=== PATIENT | male | born 1970 | race African-American/Black ===

== ENCOUNTER 2016-12-19 14:35 | Inpatient (IN) | payer OTHER ==
[2016-12-19 17:36] VITALS: BMI 22.8
--- NOTE | 2016-12-19 18:26 | HP ---
CIWA Score - CIWA Score Nausea/Vomitin-Mild Nausea/No Vomiting Muscle Tremors: 5 Anxiety: 4-Mod. Anxious/Guarded Agitation: 4-Moderately Restless Paroxysmal Sweats: 1-Minimal Palms Moist Orientation: 1-Uncertain about Date Tacttile Disturbances: 0-None Auditory Disturbances: 0-None Visual Disturbances: 0-None Headache: 1-Very Mild CIWA-Ar Total Score: 17 Admission ROS BHS - HPI Chief Complaint: WITHDRAWAL SX Allergies/Adverse Reactions: Allergies Allergy/AdvReac Type Severity Reaction Status Date / Time No Known Allergies Allergy Verified 12/19/16 17:44 History of Present Illness: 46 YEARS OLD MALE WITH LONG HISTORY OF ALCOHOL NICOTINE DEPENDENCE, HAS HYPOTHYROID, POSITIVE PPD OSTEOPOROSIS AND DEPRESSION AND NEUROPATHY OF THE ARMS AND LEGS IS ADMITTED TO DETOX Exam Limitations: No Limitations - Ebola screening Have you traveled outside of the country in the last 21 days: No Have you had contact with anyone from an Ebola affected area: No Have you been sick,other than usual withdrawal symptoms: No Do you have a fever: No - Review of Systems Constitutional: Chills, Loss of Appetite, Changes in sleep, Unintentional Wgt. Loss, Unexplained wgt Loss EENT: reports: No Symptoms Reported Respiratory: reports: No Symptoms reported Cardiac: reports: No Symptoms Reported GI: reports: Diarrhea, Nausea, Poor Appetite, Poor Fluid Intake, Abdominal cramping : reports: No Symptoms Reported Musculoskeletal: reports: Back Pain, Muscle Pain (HIPS), Neck Pain Integumentary: reports: No Symptoms Reported Neuro: reports: Tremors Endocrine: reports: Unexplained Weight Gain Hematology: reports: No Symptoms Reported Psychiatric: reports: Judgement Intact, Anxious Other Systems: Reviewed and Negative Patient History - Patient Medical History Hx Anemia: No Hx Asthma: No Hx Chronic Obstructive Pulmonary Disease (COPD): No Hx Cancer: No Hx Cardiac Disorders: No Hx Congestive Heart Failure: No Hx Hypertension: No Hx Hypercholesterolemia: No Hx Pacemaker: No HX Cerebrovascular Accident: No Hx Seizures: No Hx Dementia: No Hx Diabetes: No Hx Gastrointestinal Disorders: No Hx Liver Disease: No Hx Genitourinary Disorders: No Hx Sexually Transmitted Disorders: No Hx Renal Disease (ESRD): No Hx Thyroid Disease: Yes (HYPO 2014) Hx Human Immunodeficiency Virus (HIV): No Hx Hepatitis C: No Hx Depression: Yes Hx Suicide Attempt: No Hx Bipolar Disorder: No Hx Schizophrenia: No - Patient Surgical History Past Surgical History: Yes Hx Neurologic Surgery: Yes (2012) Hx Cataract Extraction: No Hx Cardiac Surgery: No Hx Lung Surgery: No Hx Breast Surgery: No Hx Breast Biopsy: No Hx Abdominal Surgery: No Hx Appendectomy: No Hx Cholecystectomy: No Hx Genitourinary Surgery: No Hx Orthopedic Surgery: No Anesthesia Reaction: No - PPD History Previous Implant?: Yes Documented Results: Positive w/o proof Implanted On Prior R Admission?: No PPD to be Administered?: No - Smoking Cessation Smoking history: Current every day smoker Have you smoked in the past 12 months: Yes Aproximately how many cigarettes per day: 20 Cigars Per Day: 0 Hx Chewing Tobacco Use: No Initiated information on smoking cessation: Yes 'Breaking Loose' booklet given: 12/19/16 - Substance & Tx. History Hx Alcohol Use: Yes Hx Substance Use: No Substance Use Type: Alcohol Hx Substance Use Treatment: Yes - Substances Abused Alcohol Route: Oral Frequency: Daily Amount used: LIQUOR- 1 PINT, BEER- 2 SIX PACK Age of first use: 15 Date of Last Use: 12/18/16 Family Disease History - Family Disease History Family Disease History: Diabetes: Father, Heart Disease: Father, Brother Admission Physical Exam BHS - Vital Signs Vital Signs: Vital Signs - 24 hr 12/19/16 17:34 Temperature 98.1 F Pulse Rate 80 Respiratory 20 Rate Blood Pressure 139/89 - Physical General Appearance: Yes: Appropriately Dressed, Moderate Distress, Thin, Tremorous, Irritable, Sweating, Anxious HEENTM: Yes: Hearing grossly Normal, Normal ENT Inspection, Normocephalic, Normal Voice Respiratory: Yes: Chest Non-Tender, Lungs Clear, Normal Breath Sounds, No Respiratory Distress, No Accessory Muscle Use Neck: Yes: Supple, Trachea in good position Breast: Yes: Breasts Symetrical Cardiology: Yes: Regular Rhythm, S1, S2, Tachycardia Abdominal: Yes: Non Tender, Soft Genitourinary: Yes: Within Normal Limits Back: Yes: Normal Inspection Musculoskeletal: Yes: full range of Motion, Gait Steady, Back pain, Muscle Pain Extremities: Yes: Normal Range of Motion, Non-Tender, Tremors Neurological: Yes: Alert, Motor Strength 5/5, Normal Response Integumentary: Yes: Warm Lymphatic: Yes: Within Normal Limits - Diagnostic (1) Alcohol dependence with uncomplicated withdrawal Current Visit: Yes Status: Acute (2) Positive PPD Current Visit: Yes Status: Resolved Comment: CHEST X RAY PENDING (3) Hypothyroidism Current Visit: Yes Status: Acute Qualifiers: 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 Comment: SYNTHROID (4) Weight loss Current Visit: Yes Status: Acute Comment: ENSURE (5) S/P neurological surgery Current Visit: Yes Status: Resolved Comment: NECK CERVICAL SPINE (6) Muscle spasm of back Current Visit: Yes Status: Acute Comment: FLEXERIL (7) Depression (emotion) Current Visit: Yes Status: Suspected Qualifiers: Depression Type: dysthymia Qualified Code(s): F34.1 - Dysthymic disorder Comment: KAREEMN Cleared for Admission S - Detox or Rehab [facility] Level of Care: Medically Managed Detox Regimen/Protocol: Librium [facility] Breath Alcohol Content Breath Alcohol Content: 0 Urine Drug Screen - Results Drug Screen Negative: Yes
[2016-12-19] MEDS ORDERED: LOPERAMIDE HCL 2 MG CAPSULE PO PRN (18:34)
[2016-12-19] MEDS ORDERED: ACETAMINOPHEN 325 MG TABLET (FP) PO PRN (18:34)
[2016-12-19] MEDS ORDERED: chlordiazePOXIDE HCL 25 MG CAPSULE PO PRN (18:34)
[2016-12-19] MEDS ORDERED: P-EPHED 60MG/TRIPROLIDI 2.5MG TABLET PO PRN (18:34)
[2016-12-19] MEDS ORDERED: MAG HYDROX/AL HYDROX/SIMETH 30 ML UNIT-DOSE CUP PO PRN (18:34)
[2016-12-19] MEDS ORDERED: NICOTINE POLACRILEX 4 MG GUM BC PRN (18:34)
[2016-12-19] MEDS ORDERED: MENTHOL/PHENOL 1 EACH UD MM PRN (18:34)
[2016-12-19] MEDS ORDERED: MAGNESIUM HYDROX 2400MG/30ML ORAL SUSPENSION 30 ML CUP PO PRN (18:34)
[2016-12-19] MEDS ORDERED: IBUPROFEN 400 MG TABLET (FP) PO PRN (18:34)
[2016-12-19] MEDS ORDERED: guaiFENesin/D-METHORPHAN HB 10 ML UNIT-DOSE CUPS PO PRN (18:34)
[2016-12-19] MEDS ORDERED: MAGNESIUM CITRATE 300 ML BOTTLE PO PRN (18:34)
[2016-12-19] MEDS ORDERED: CYCLOBENZAPRINE HCL 10 MG TABLET (FP) PO PRN (18:38)
[2016-12-19] MEDS ORDERED: chlordiazePOXIDE HCL 25 MG CAPSULE PO ONE (19:00)
[2016-12-19] MEDS: THIAMINE HCL 100 MG TABLET (FP) PO SCH (22:24)
[2016-12-19] MEDS: chlordiazePOXIDE HCL 25 MG CAPSULE PO SCH (22:24)
[2016-12-19] MEDS: diphenhydrAMINE HCL 50 MG CAPSULE PO PRN (22:25)
[2016-12-19] MEDS: GABAPENTIN 300 MG CAPSULE (FP) PO SCH (22:25)
[2016-12-19 23:20] LABS: URINE APPEARANCE CLEAR; URINE BILIRUBIN NEGATIVE (NEGATIVE); URINE BLOOD NEGATIVE (NEGATIVE); URINE COLOR YELLOW; URINE GLUCOSE (UA) NEGATIVE (NEGATIVE); URINE KETONE NEGATIVE (NEGATIVE); URINE LEUK ESTERASE NEGATIVE (NEGATIVE); URINE NITRITE NEGATIVE (NEGATIVE); URINE PROTEIN 1+ (NEGATIVE); URINE UROBILINOGEN NEGATIVE E.U./dl (0.2-1.0)
[2016-12-19 23:23] LABS: URINE MUCUS RARE; URINE RBC <1 /hpf (0-3); URINE WBC <1 /hpf (3-5)
[2016-12-20] MEDS: diphenhydrAMINE HCL 50 MG CAPSULE PO PRN ×2 (00:49→22:25)
[2016-12-20] MEDS: chlordiazePOXIDE HCL 25 MG CAPSULE PO SCH ×4 (05:52→22:24)
[2016-12-20] MEDS: GABAPENTIN 300 MG CAPSULE (FP) PO SCH ×3 (05:53→22:24)
[2016-12-20] MEDS: LEVOTHYROXINE NA 88 MCG TABLET (FP) PO SCH (06:08)
[2016-12-20 10:09] LABS: MCH 31.9 pg (25.7-33.7); MCHC 33.1 g/dl (32.0-35.9); MEAN CELL VOLUME 96.2 fl (80-96); MEAN PLT VOLUME 8.6 fl (7.5-11.1); PLATELET COUNT 179 K/MM3 (134-434); RDW 16.5 % (11.9-15.9); WHITE BLOOD COUNT 6.4 K/mm3 (4.0-10.0)
[2016-12-20] MEDS: NICOTINE 21 MG/24 HOURS TOPICAL PATCH TD SCH (10:26)
[2016-12-20] MEDS: PRENATAL VITAMINS W/ FOLIC ACID TABLET (FP) PO SCH (10:27)
[2016-12-20] MEDS: CALCIUM 250MG/VIT-D 125 UNITS 1 COMBO TABLET PO SCH (10:27)
[2016-12-20 10:57] LABS: ALBUMIN 3.5 g/dl (3.4-5.0); ALK PHOS 75 U/L (45-117); ANION GAP 10 (8-16); BILIRUBIN,TOTAL 0.6 mg/dL (0.2-1.0); CALCIUM 8.9 mg/dL (8.5-10.1); CO2 25 mmol/L (21-32); CREATININE 0.9 mg/dL (0.7-1.3); GLUCOSE,RANDOM 89 mg/dL (74-106); SGOT/AST 26 U/L (15-37); SGPT/ALT 21 U/L (12-78); THYROID STIMULATING HORMONE 2.92 uIU/ml (0.358-3.74); TOT PROT 6.3 g/dl (6.4-8.2)
--- NOTE | 2016-12-20 10:58 | PN ---
S CIWA - CIWA Score Nausea/Vomitin-Mild Nausea/No Vomiting Muscle Tremors: 4-Moderate,w/Arms Extend Anxiety: 3 Agitation: 4-Moderately Restless Paroxysmal Sweats: 3 Orientation: 0-Oriented Tacttile Disturbances: 0-None Auditory Disturbances: 0-None Visual Disturbances: 0-None Headache: 0-None Present CIWA-Ar Total Score: 15 BHS Progress Note (SOAP) Subjective: Sweating,interrupted sleep,anxiety,tremors,restless Objective: 12/20/16 10:57 Vital Signs - 8 hr 12/20/16 12/20/16 06:20 10:45 Temperature 97 F L 97.2 F L Pulse Rate 80 92 H Respiratory 18 20 Rate Blood Pressure 117/81 122/87 Laboratory Last Values WBC 6.4 K/mm3 (4.0-10.0) 12/20/16 07:10 RBC 4.44 M/mm3 (4.00-5.60) 12/20/16 07:10 Hgb 14.1 GM/dL (11.7-16.9) 12/20/16 07:10 Hct 42.7 % (35.4-49) 12/20/16 07:10 MCV 96.2 fl (80-96) H 12/20/16 07:10 MCHC 33.1 g/dl (32.0-35.9) 12/20/16 07:10 RDW 16.5 % (11.9-15.9) H 12/20/16 07:10 Plt Count 179 K/MM3 (134-434) 12/20/16 07:10 MPV 8.6 fl (7.5-11.1) 12/20/16 07:10 Sodium 141 mmol/L (136-145) 12/20/16 07:10 Potassium 3.8 mmol/L (3.5-5.1) 12/20/16 07:10 Chloride 106 mmol/L (98-107) 12/20/16 07:10 Urine Color Yellow 12/19/16 22:00 Urine Appearance Clear 12/19/16 22:00 Urine pH 7.0 (5.0-8.0) 12/19/16 22:00 Ur Specific [place] 1.023 (1.001-1.035) 12/19/16 22:00 Urine Protein 1+ (NEGATIVE) H 12/19/16 22:00 Urine Glucose (UA) Negative (NEGATIVE) 12/19/16 22:00 Urine Ketones Negative (NEGATIVE) 12/19/16 22:00 Urine Blood Negative (NEGATIVE) 12/19/16 22:00 Urine Nitrite Negative (NEGATIVE) 12/19/16 22:00 Urine Bilirubin Negative (NEGATIVE) 12/19/16 22:00 Urine Urobilinogen Negative E.U./dl (0.2-1.0) 12/19/16 22:00 Ur Leukocyte Esterase Negative (NEGATIVE) 12/19/16 22:00 Urine RBC <1 /hpf (0-3) 12/19/16 22:00 Urine WBC <1 /hpf (3-5) 12/19/16 22:00 Ur Epithelial Cells Rare /hpf (FEW) 12/19/16 22:00 Urine Mucus Rare 12/19/16 22:00 labs noted Assessment: 12/20/16 10:57 Withdrawal sx. Plan: Continue detox
[2016-12-20] MEDS: hydrOXYzine PAMOATE 50 MG CAPSULE (FP) PO PRN (13:29)
--- NOTE | 2016-12-20 13:42 | CONSULT ---
[facility] Psychiatric Consult - Data Date of interview: 12/20/16 Admission source: [facility] Identifying data: First admission to [facility] for this 46 y/o [place]-born male seeking detox treatment for alcohol dependence.Patient is single without children,domiciled,unempoyed and supported on food stamps. Substance Abuse History: - Smoking Cessation. Smoking history: Current every day smoker. Have you smoked in the past 12 months: Yes. Aproximately how many cigarettes per day: 20. Cigars Per Day: 0. Hx Chewing Tobacco Use: No. Initiated information on smoking cessation: Yes. 'Breaking Loose' booklet given : 12/19/16. - Substance & Tx. History. Hx Alcohol Use: Yes. Hx Substance Use : No. Substance Use Type: Alcohol. Hx Substance Use Treatment: Yes. - Substances Abused. Alcohol. Route: Oral. Frequency: Daily. Amount used: LIQUOR- 1 PINT, BEER- 2 SIX PACK. Age of first use: 15. Date of Last Use: . Confirmed by the patient. Medical History: Hypothyroidism. Psychiatric History: Patient denies psychiatric hospitalizations.He sees a psychiatrist at the [facility] for medication management (remeron 15 mg/hs).Diagnosed with Anxiety Disorder and Insomnia.Mr Higgins denies history of suicide attempts. Physical/Sexual Abuse/Trauma History: Patient denies. Additional Comment: Drug Screen Negative: Yes.Noted. Mental Status Exam - Mental Status Exam Alert and Oriented to: Time, Place, Person Cognitive Function: Good Patient Appearance: Well Groomed Mood: Hopeful, Euthymic Affect: Appropriate, Normal Range Patient Behavior: Appropriate, Cooperative (friendly,well-mannered) Speech Pattern: Clear, Appropriate Voice Loudness: Normal Thought Process: Goal Oriented Thought Disorder: Not Present Hallucinations: Denies Suicidal Ideation: Denies Homicidal Ideation: Denies Insight/Judgement: Fair Sleep: Poorly, Difficulty falling asleep Appetite: Good Muscle strength/Tone: Normal Gait/Station: Normal Psychiatric Findings - Problem List ([place] 1, 2,3) (1) Alcohol dependence with uncomplicated withdrawal Current Visit: Yes Status: Acute (2) Nicotine dependence Current Visit: Yes Status: Acute (3) Hypothyroidism Current Visit: Yes Status: Acute Qualifiers: 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
--- NOTE | 2016-12-20 16:55 | EKG ---
Test Reason : Blood Pressure : / mmHG Vent. Rate : 061 BPM Atrial Rate : 061 BPM P-R Int : 124 ms QRS Dur : 088 ms QT Int : 420 ms P-R-T Axes : 055 007 007 degrees QTc Int : 422 ms NORMAL SINUS RHYTHM VOLTAGE CRITERIA FOR LEFT VENTRICULAR HYPERTROPHY ABNORMAL ECG NO PREVIOUS ECGS AVAILABLE Confirmed by ELICEO LAYTON MD ([id number]) on 12/20/2016 4:55:05 PM Referred By: Confirmed By:ELICEO LAYTON MD
[2016-12-20] MEDS: MIRTAZAPINE 15 MG TABLET (FP) PO SCH (22:24)
[2016-12-20] MEDS: THIAMINE HCL 100 MG TABLET (FP) PO SCH (22:24)
[2016-12-21] MEDS: GABAPENTIN 300 MG CAPSULE (FP) PO SCH ×3 (05:34→22:20)
[2016-12-21] MEDS: chlordiazePOXIDE HCL 25 MG CAPSULE PO SCH ×3 (05:34→17:56)
[2016-12-21] MEDS: LEVOTHYROXINE NA 88 MCG TABLET (FP) PO SCH (07:06)
--- NOTE | 2016-12-21 10:19 | PN ---
S CIWA - CIWA Score Nausea/Vomitin Muscle Tremors: 3 Anxiety: 3 Agitation: 2 Paroxysmal Sweats: 1-Minimal Palms Moist Orientation: 0-Oriented Tacttile Disturbances: 1-Very Mild Itch/Numbness Auditory Disturbances: 1-Very Mild Visual Disturbances: 1-Very Mild Sensitivity Headache: 2-Mild CIWA-Ar Total Score: 17 S Progress Note (SOAP) Subjective: ALERT,IRRITABLE,ANXIOUS,INTERRUPTED SLEEP,TREMOR Objective: 12/21/16 10:17 Vital Signs Temperature 96.4 F L 12/21/16 10:12 Pulse Rate 92 H 12/21/16 10:12 Respiratory Rate 2 L 12/21/16 10:12 Blood Pressure 116/84 12/21/16 10:12 O2 Sat by Pulse Oximetry (%) EKG NSR Laboratory Last Values WBC 6.4 K/mm3 (4.0-10.0) 12/20/16 07:10 RBC 4.44 M/mm3 (4.00-5.60) 12/20/16 07:10 Hgb 14.1 GM/dL (11.7-16.9) 12/20/16 07:10 Hct 42.7 % (35.4-49) 12/20/16 07:10 MCV 96.2 fl (80-96) H 12/20/16 07:10 MCHC 33.1 g/dl (32.0-35.9) 12/20/16 07:10 RDW 16.5 % (11.9-15.9) H 12/20/16 07:10 Plt Count 179 K/MM3 (134-434) 12/20/16 07:10 MPV 8.6 fl (7.5-11.1) 12/20/16 07:10 Sodium 141 mmol/L (136-145) 12/20/16 07:10 Potassium 3.8 mmol/L (3.5-5.1) 12/20/16 07:10 Chloride 106 mmol/L (98-107) 12/20/16 07:10 Carbon Dioxide 25 mmol/L (21-32) 12/20/16 07:10 Anion Gap 10 (8-16) 12/20/16 07:10 BUN 13 mg/dL (7-18) 12/20/16 07:10 Creatinine 0.9 mg/dL (0.7-1.3) 12/20/16 07:10 Creat Clearance w eGFR > 60 (>60) 12/20/16 07:10 Random Glucose 89 mg/dL (74-106) 12/20/16 07:10 Calcium 8.9 mg/dL (8.5-10.1) 12/20/16 07:10 Total Bilirubin 0.6 mg/dL (0.2-1.0) 12/20/16 07:10 AST 26 U/L (15-37) 12/20/16 07:10 ALT 21 U/L (12-78) 12/20/16 07:10 Alkaline Phosphatase 75 U/L (45-117) 12/20/16 07:10 Total Protein 6.3 g/dl (6.4-8.2) L 12/20/16 07:10 Albumin 3.5 g/dl (3.4-5.0) 12/20/16 07:10 TSH 2.92 uIU/ml (0.358-3.74) 12/20/16 07:10 Urine Color Yellow 12/19/16 22:00 Urine Appearance Clear 12/19/16 22:00 Urine pH 7.0 (5.0-8.0) 12/19/16 22:00 Ur Specific [place] 1.023 (1.001-1.035) 12/19/16 22:00 Urine Protein 1+ (NEGATIVE) H 12/19/16 22:00 Urine Glucose (UA) Negative (NEGATIVE) 12/19/16 22:00 Urine Ketones Negative (NEGATIVE) 12/19/16 22:00 Urine Blood Negative (NEGATIVE) 12/19/16 22:00 Urine Nitrite Negative (NEGATIVE) 12/19/16 22:00 Urine Bilirubin Negative (NEGATIVE) 12/19/16 22:00 Urine Urobilinogen Negative E.U./dl (0.2-1.0) 12/19/16 22:00 Ur Leukocyte Esterase Negative (NEGATIVE) 12/19/16 22:00 Urine RBC <1 /hpf (0-3) 12/19/16 22:00 Urine WBC <1 /hpf (3-5) 12/19/16 22:00 Ur Epithelial Cells Rare /hpf (FEW) 12/19/16 22:00 Urine Mucus Rare 03/20/17 22:00 RPR Titer Nonreactive (NONREACTIVE) 12/20/16 07:10 Assessment: 12/21/16 10:18 WITHDRAWAL SYMPTOM Plan: CONTINUE DETOX
[2016-12-21] MEDS: PRENATAL VITAMINS W/ FOLIC ACID TABLET (FP) PO SCH (10:29)
[2016-12-21] MEDS: CALCIUM 250MG/VIT-D 125 UNITS 1 COMBO TABLET PO SCH (10:31)
[2016-12-21] MEDS: NICOTINE 21 MG/24 HOURS TOPICAL PATCH TD SCH (10:32)
[2016-12-21] MEDS: hydrOXYzine PAMOATE 50 MG CAPSULE (FP) PO PRN (15:48)
[2016-12-21] MEDS: chlordiazePOXIDE 5 MG CAPSULE PO SCH (22:19)
[2016-12-21] MEDS: THIAMINE HCL 100 MG TABLET (FP) PO SCH (22:19)
[2016-12-21] MEDS: MIRTAZAPINE 15 MG TABLET (FP) PO SCH (22:20)
[2016-12-21] MEDS: diphenhydrAMINE HCL 50 MG CAPSULE PO PRN (22:20)
[2016-12-22] MEDS: chlordiazePOXIDE 5 MG CAPSULE PO SCH ×3 (05:39→17:39)
[2016-12-22] MEDS: GABAPENTIN 300 MG CAPSULE (FP) PO SCH ×3 (05:40→22:19)
[2016-12-22] MEDS: LEVOTHYROXINE NA 88 MCG TABLET (FP) PO SCH (06:26)
--- NOTE | 2016-12-22 10:05 | PN ---
BHS Progress Note (SOAP) Subjective: Sweating,interrupted sleep,restless Objective: 12/22/16 10:04 Vital Signs - 8 hr 12/22/16 12/22/16 12/22/16 03:19 06:29 09:36 Temperature 97.7 F 96.4 F L Pulse Rate 93 H 95 H Respiratory 18 16 18 Rate Blood Pressure 107/76 123/86 Laboratory Last Values WBC 6.4 K/mm3 (4.0-10.0) 12/20/16 07:10 RBC 4.44 M/mm3 (4.00-5.60) 12/20/16 07:10 Hgb 14.1 GM/dL (11.7-16.9) 12/20/16 07:10 Hct 42.7 % (35.4-49) 12/20/16 07:10 MCV 96.2 fl (80-96) H 12/20/16 07:10 MCHC 33.1 g/dl (32.0-35.9) 12/20/16 07:10 RDW 16.5 % (11.9-15.9) H 12/20/16 07:10 Plt Count 179 K/MM3 (134-434) 12/20/16 07:10 MPV 8.6 fl (7.5-11.1) 12/20/16 07:10 Sodium 141 mmol/L (136-145) 12/20/16 07:10 Potassium 3.8 mmol/L (3.5-5.1) 12/20/16 07:10 Chloride 106 mmol/L (98-107) 12/20/16 07:10 Carbon Dioxide 25 mmol/L (21-32) 12/20/16 07:10 Anion Gap 10 (8-16) 12/20/16 07:10 BUN 13 mg/dL (7-18) 12/20/16 07:10 Creatinine 0.9 mg/dL (0.7-1.3) 12/20/16 07:10 Creat Clearance w eGFR > 60 (>60) 12/20/16 07:10 Random Glucose 89 mg/dL (74-106) 12/20/16 07:10 Calcium 8.9 mg/dL (8.5-10.1) 12/20/16 07:10 Total Bilirubin 0.6 mg/dL (0.2-1.0) 12/20/16 07:10 AST 26 U/L (15-37) 12/20/16 07:10 ALT 21 U/L (12-78) 12/20/16 07:10 Alkaline Phosphatase 75 U/L (45-117) 12/20/16 07:10 Total Protein 6.3 g/dl (6.4-8.2) L 12/20/16 07:10 Albumin 3.5 g/dl (3.4-5.0) 12/20/16 07:10 TSH 2.92 uIU/ml (0.358-3.74) 12/20/16 07:10 Urine Color Yellow 12/19/16 22:00 Urine Appearance Clear 12/19/16 22:00 Urine pH 7.0 (5.0-8.0) 12/19/16 22:00 Ur Specific [place] 1.023 (1.001-1.035) 12/19/16 22:00 Urine Protein 1+ (NEGATIVE) H 12/19/16 22:00 Urine Glucose (UA) Negative (NEGATIVE) 12/19/16 22:00 Urine Ketones Negative (NEGATIVE) 12/19/16 22:00 Urine Blood Negative (NEGATIVE) 12/19/16 22:00 Urine Nitrite Negative (NEGATIVE) 12/19/16 22:00 Urine Bilirubin Negative (NEGATIVE) 12/19/16 22:00 Urine Urobilinogen Negative E.U./dl (0.2-1.0) 12/19/16 22:00 Ur Leukocyte Esterase Negative (NEGATIVE) 12/19/16 22:00 Urine RBC <1 /hpf (0-3) 12/19/16 22:00 Urine WBC <1 /hpf (3-5) 12/19/16 22:00 Ur Epithelial Cells Rare /hpf (FEW) 12/19/16 22:00 Urine Mucus Rare 12/19/16 22:00 RPR Titer Nonreactive (NONREACTIVE) 12/20/16 07:10 labs noted Assessment: 12/22/16 10:04 Withdrawal sx. Plan: Continue detox
[2016-12-22] MEDS: PRENATAL VITAMINS W/ FOLIC ACID TABLET (FP) PO SCH (10:28)
[2016-12-22] MEDS: NICOTINE 21 MG/24 HOURS TOPICAL PATCH TD SCH (10:29)
[2016-12-22] MEDS: CALCIUM 250MG/VIT-D 125 UNITS 1 COMBO TABLET PO SCH (10:29)
[2016-12-22] MEDS: chlordiazePOXIDE HCL 10 MG CAPSULE PO SCH (22:19)
[2016-12-22] MEDS: THIAMINE HCL 100 MG TABLET (FP) PO SCH (22:19)
[2016-12-22] MEDS: MIRTAZAPINE 15 MG TABLET (FP) PO SCH (22:19)
[2016-12-23] MEDS: GABAPENTIN 300 MG CAPSULE (FP) PO SCH (05:29)
[2016-12-23] MEDS: chlordiazePOXIDE HCL 10 MG CAPSULE PO SCH ×2 (05:29→05:42)
[2016-12-23] MEDS: LEVOTHYROXINE NA 88 MCG TABLET (FP) PO SCH (06:08)
[2016-12-23 06:32] VITALS: BP 120/86; PULSE 103; TEMP 96.4
--- NOTE | 2016-12-23 12:26 | DS ---
[facility] Detox Discharge Summary Admission Date: 12/19/16 Discharge Date: 12/23/16 - History Present History: Alcohol Dependence Additional Comments: ADVISED PATIENT TO FOLLOW-UP WITH [facility] / REHAB MEDICAL PROVIDER AFTER DISCHARGE FROM DETOX FOR GENERAL MEDICAL ASSESSMENT AND FOR ANY ABNORMAL ADMISSION LAB VALUES. Pertinent Past History: Hypothyroidism, Depression, Positive PPD. - Physical Exam Results Vital Signs: Vital Signs Temperature 96.4 F L 12/23/16 06:32 Pulse Rate 103 H 12/23/16 06:32 Respiratory Rate 18 12/23/16 06:32 Blood Pressure 120/86 12/23/16 06:32 O2 Sat by Pulse Oximetry (%) Pertinent Admission Physical Exam Findings: WITHDRAWAL SYMPTOMS. Laboratory Last Values WBC 6.4 K/mm3 (4.0-10.0) 12/20/16 07:10 RBC 4.44 M/mm3 (4.00-5.60) 12/20/16 07:10 Hgb 14.1 GM/dL (11.7-16.9) 12/20/16 07:10 Hct 42.7 % (35.4-49) 12/20/16 07:10 MCV 96.2 fl (80-96) H 12/20/16 07:10 MCHC 33.1 g/dl (32.0-35.9) 12/20/16 07:10 RDW 16.5 % (11.9-15.9) H 12/20/16 07:10 Plt Count 179 K/MM3 (134-434) 12/20/16 07:10 MPV 8.6 fl (7.5-11.1) 12/20/16 07:10 Sodium 141 mmol/L (136-145) 12/20/16 07:10 Potassium 3.8 mmol/L (3.5-5.1) 12/20/16 07:10 Chloride 106 mmol/L (98-107) 12/20/16 07:10 Carbon Dioxide 25 mmol/L (21-32) 12/20/16 07:10 Anion Gap 10 (8-16) 12/20/16 07:10 BUN 13 mg/dL (7-18) 12/20/16 07:10 Creatinine 0.9 mg/dL (0.7-1.3) 12/20/16 07:10 Creat Clearance w eGFR > 60 (>60) 12/20/16 07:10 Random Glucose 89 mg/dL (74-106) 12/20/16 07:10 Calcium 8.9 mg/dL (8.5-10.1) 12/20/16 07:10 Total Bilirubin 0.6 mg/dL (0.2-1.0) 12/20/16 07:10 AST 26 U/L (15-37) 12/20/16 07:10 ALT 21 U/L (12-78) 12/20/16 07:10 Alkaline Phosphatase 75 U/L (45-117) 12/20/16 07:10 Total Protein 6.3 g/dl (6.4-8.2) L 12/20/16 07:10 Albumin 3.5 g/dl (3.4-5.0) 12/20/16 07:10 TSH 2.92 uIU/ml (0.358-3.74) 12/20/16 07:10 Urine Color Yellow 12/19/16 22:00 Urine Appearance Clear 12/19/16 22:00 Urine pH 7.0 (5.0-8.0) 12/19/16 22:00 Ur Specific [place] 1.023 (1.001-1.035) 12/19/16 22:00 Urine Protein 1+ (NEGATIVE) H 12/19/16 22:00 Urine Glucose (UA) Negative (NEGATIVE) 12/19/16 22:00 Urine Ketones Negative (NEGATIVE) 12/19/16 22:00 Urine Blood Negative (NEGATIVE) 12/19/16 22:00 Urine Nitrite Negative (NEGATIVE) 12/19/16 22:00 Urine Bilirubin Negative (NEGATIVE) 12/19/16 22:00 Urine Urobilinogen Negative E.U./dl (0.2-1.0) 12/19/16 22:00 Ur Leukocyte Esterase Negative (NEGATIVE) 12/19/16 22:00 Urine RBC <1 /hpf (0-3) 12/19/16 22:00 Urine WBC <1 /hpf (3-5) 12/19/16 22:00 Ur Epithelial Cells Rare /hpf (FEW) 12/19/16 22:00 Urine Mucus Rare 12/19/16 22:00 RPR Titer Nonreactive (NONREACTIVE) 12/20/16 07:10 LABS NOTED. - Treatment Hospital Course: Detox Protocol Followed, Detoxed Safely, Responded well, Discharged Condition Good Patient has Accepted a Rehab Referral to: NO - PATIENT TO GO TO [facility]. 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
== END 2016-12-23 09:25 | disposition home or self-care (01) | DRG 775 ==
LOC: YASAS 14:35 → Y3N 18:13
PROVIDERS: ADMIT Internal Medicine; ATTEND Internal Medicine
PROC: HZ2ZZZZ Detoxification Services for Substance Abuse Treatment (ICD-10-PCS; principal; 2016-12-23)
DX: F10.230 Alcohol dependence with withdrawal, uncomplicated (principal); F17.210 Nicotine dependence, cigarettes, uncomplicated; F34.1 Dysthymic disorder; G47.00 Insomnia, unspecified; E03.9 Hypothyroidism, unspecified; M62.830 Muscle spasm of back; R76.11 Nonspecific reaction to tuberculin skin test without active tuberculosis; R63.4 Abnormal weight loss; Z68.22 Body mass index [BMI] 22.0-22.9, adult
CPT/HCPCS: 36415; 71020-TC; 80053; 81003; 81015; 84443; 85027; 86593; 93005; 93010